=== PATIENT | female | born 1965 | race Caucasian/White ===

== ENCOUNTER → 2017-01-30 | Outpatient (REF) | payer BC | LOC: M LAB REF 09:57 | PROVIDERS: ATTEND Surgery | DX: C44.619 Basal cell carcinoma of skin of left upper limb, including shoulder (principal) ==

== ENCOUNTER → 2018-01-03 | Outpatient (REF) | payer BC | LOC: M LAB REF 19:24 | DX: C44.519 Basal cell carcinoma of skin of other part of trunk (principal) | CPT/HCPCS: 88305 ==

== ENCOUNTER → 2018-01-17 | Outpatient (REF) | payer BC | LOC: M LAB REF 13:23 | DX: C44.719 Basal cell carcinoma of skin of left lower limb, including hip (principal); C44.519 Basal cell carcinoma of skin of other part of trunk | CPT/HCPCS: 88305 ==